=== PATIENT | male | born 2000 | race Caucasian/White ===

== ENCOUNTER → 2018-08-06 | Outpatient (REF) | payer BC | LOC: M SFHCLERA 10:29 | PROVIDERS: ATTEND Physician Assistant | DX: J02.9 Acute pharyngitis, unspecified (principal) ==

== ENCOUNTER → 2018-12-03 | Outpatient (REF) | payer BC ==
[~2018-12-03] MED LIST: AMOX875T2 PO; HYDR-4571 PO; METR-265 PO; SULF1TAB93 PO
== END ==
LOC: M SFHCLERA 14:22
PROVIDERS: ATTEND Physician Assistant
DX: L05.01 Pilonidal cyst with abscess (principal)

== ENCOUNTER 2018-12-07 11:02 | Day surgery (SDC) | payer BC ==
[~2018-12-07] VITALS: Ht 175.3 cm; Wt 104.5 kg
[2018-12-07] MEDS ORDERED: SULF1TAB93 PO (11:14)
[2018-12-07] MEDS ORDERED: KETOROLAC 30 MG/ML VIAL (J1885) IV ONE (11:30)
[2018-12-07] MEDS ORDERED: NS 1,000 ML IV ONE (11:30)
[2018-12-07 11:42] LABS: BASO % 0.2 % (0.0-1.0); EOS % 0.1 % (0.0-3.0); HEMATOCRIT 41.2 % (42.0-52.0); HEMOGLOBIN 14.6 g/dl (13.5-17.5); LYMPH # 1.1 10^3/uL (1.5-6.5); LYMPH % 7.9 % (24.0-44.0); MEAN CORPUSCULAR HEMOGLOBIN 30.5 pg (27.0-33.0); MEAN CORPUSCULAR HGB CONC 35.4 g/dl (32.0-36.5); MEAN CORPUSCULAR VOLUME 86.2 fl (80.0-96.0); MONO # 1.4 10^3/uL (0.0-0.8); MONO % 10.5 % (0.0-5.0); NEUTROPHILS # 11.1 10^3/uL (1.8-7.7); NEUTROPHILS % 80.9 % (36.0-66.0); PLATELET COUNT, AUTOMATED 298 10^3/uL (150-450); RED BLOOD COUNT 4.78 10^6/uL (4.30-6.10); WHITE BLOOD COUNT 13.8 10^3/uL (4.0-10.0)
[2018-12-07 12:06] LABS: ALBUMIN 3.9 GM/DL (3.2-5.2); ALT/SGPT 43 U/L (12-78); BILIRUBIN,DIRECT 0.4 MG/DL (0.0-0.2); BILIRUBIN,TOTAL 1.2 MG/DL (0.2-1.0); BLOOD UREA NITROGEN 14 MG/DL (7-18); CALCIUM LEVEL 9.7 MG/DL (8.5-10.1); CARBON DIOXIDE LEVEL 29 MEQ/L (21-32); CHLORIDE LEVEL 98 MEQ/L (98-107); CREATININE FOR GFR 1.01 MG/DL (0.70-1.30); GLUCOSE, FASTING 90 MG/DL (70-100); LIPASE 75 U/L (73-393); POTASSIUM SERUM 4.3 MEQ/L (3.5-5.1); SODIUM LEVEL 138 MEQ/L (136-145); TOTAL PROTEIN 7.7 GM/DL (6.4-8.2)
[2018-12-07] MEDS ORDERED: ISOVUE-370 76% 100ML VIAL (Q9967) As Ordered ONE (12:13)
[2018-12-07] MEDS ORDERED: PIPERACILLIN/TAZOBACTAM SOD 3.375 GM in D5W MINI-BAG PLUS 50 ML IV ONE ×2 (13:15→18:45)
--- NOTE | 2018-12-07 13:36 | REP ---
CT of the abdomen and pelvis with IV contrast, without bowel contrast for right lower quadrant abdominal pain. The appendix is dilated measuring 21 mm in diameter. There is periappendiceal mesenteric inflammation. Findings are compatible with appendicitis. There is no periappendiceal fluid collection or abscess. There is no pneumoperitoneum. There is a small volume of ascites in the pelvis. The visualized lung gaines are unremarkable. The hepatic parenchyma, gallbladder, pancreas, spleen, adrenals, kidneys and abdominal aorta are unremarkable. The bowel and mesentery are otherwise unremarkable. Pelvis: Small volume of ascites. The bladder is unremarkable. There is no adenopathy. Impression: Acute appendicitis with appendix distension and periappendiceal inflammation. There is no periappendiceal fluid collection or abscess. Electronically Signed by Olegario Harris MD 12/07/2018 01:28 P
[2018-12-07 16:55] VITALS: BP 139/67
[2018-12-07] MEDS ORDERED: BUPIVACAINE HCL 0.25% 30 ML VIAL As Ordered ONE (18:16)
[2018-12-07] MEDS ORDERED: LIDOCAINE 1% SDV INJ 30 ML VIAL As Ordered ONE (18:16)
[2018-12-07] MEDS ORDERED: LR 1,000 ML IV SCH ×2 (18:30→22:00)
[2018-12-07] MEDS ORDERED: PIPERACILLIN/TAZOBACTAM SOD 3.375 GM in D5W MINI-BAG PLUS 50 ML IV SCH (19:00)
[2018-12-07] MEDS ORDERED: fentaNYL 100 MCG/2 ML INJECTION (J3010) As Ordered ONE (19:15)
[2018-12-07] MEDS ORDERED: MIDAZOLAM INJ 2 MG/2 ML VIAL (J2250) As Ordered ONE (19:16)
[2018-12-07] MEDS ORDERED: LIDOCAINE 2% INJ 100 MG/5 ML SDV (FOR ANES.) As Ordered ONE (19:16)
[2018-12-07] MEDS ORDERED: ONDANSETRON 4MG/2ML VIAL (J2405) As Ordered ONE (19:16)
[2018-12-07] MEDS ORDERED: dexameTHASONE 4 MG/ML 1ML VIAL (J1100) As Ordered ONE (19:16)
[2018-12-07] MEDS ORDERED: ROCURONIUM BROMIDE 50 MG/5 ML VIAL As Ordered ONE ×2 (19:16→21:06)
[2018-12-07] MEDS ORDERED: propofoL 200 MG/20 ML VIAL As Ordered ONE ×2 (19:16→21:20)
[2018-12-07] MEDS ORDERED: ZOSYN 3.375 GM VIAL (J2543) As Ordered ONE (20:03)
[2018-12-07] MEDS ORDERED: SUGAMMADEX SODIUM 500 MG/5 ML VIAL (BRIDION) As Ordered ONE (20:06)
[2018-12-07] MEDS ORDERED: KETOROLAC 60 MG/2 ML VIAL (J1885) As Ordered ONE (20:06)
[2018-12-07] MEDS ORDERED: HYDROmorphone HCL 2 MG/ML 1ML VIAL (J1170) As Ordered ONE (20:13)
[2018-12-07] MEDS ORDERED: MORPHINE 4 MG/ML 1ML VIAL/SYRINGE (J2270) IV PRN (21:45)
[2018-12-07] MEDS ORDERED: NORCO, ANEXSIA 5/325MG TABLET (HYDROcodone/ACETAMINOPHEN) PO PRN ×2 (21:45)
[2018-12-07] MEDS ORDERED: ONDANSETRON 4MG/2ML VIAL (J2405) IV PRN ×2 (21:45→22:00)
[2018-12-07] MEDS ORDERED: ACETAMINOPHEN TAB 650MG DOSE (2X325MG) PO PRN (21:45)
[2018-12-07] MEDS ORDERED: fentaNYL 100 MCG/2 ML INJECTION (J3010) IV PRN (22:00)
[2018-12-07] MEDS ORDERED: MORPHINE 10 MG/ML 1ML VIAL (J2270) IV PRN (22:00)
[2018-12-07] MEDS ORDERED: PERCOCET 5MG/325MG TAB PO PRN (22:00)
[2018-12-07 22:36] VITALS: BP 168/97
[2018-12-07] MEDS: CelecoXIB (CeleBREX) 100 MG CAP PO SCH (22:40)
[2018-12-07] MEDS: SENOKOT S TAB PO SCH (22:40)
[2018-12-07] MEDS: LR 1,000 ML IV SCH (22:41)
[2018-12-07 23:05] VITALS: BP 156/95
[2018-12-07 23:45] VITALS: BP 148/70
[2018-12-08] VITALS (9 sets, daily range): BP systolic 117–146; BP diastolic 60–79
[2018-12-08] MEDS: PIPERACILLIN/TAZOBACTAM SOD 3.375 GM in D5W MINI-BAG PLUS 50 ML IV SCH ×4 (01:40→20:30)
[2018-12-08 06:26] LABS: HEMOGLOBIN 14.1 g/dl (13.5-17.5); MEAN CORPUSCULAR HEMOGLOBIN 29.4 pg (27.0-33.0); MEAN CORPUSCULAR HGB CONC 34.4 g/dl (32.0-36.5); MEAN CORPUSCULAR VOLUME 85.6 fl (80.0-96.0); PLATELET COUNT, AUTOMATED 306 10^3/uL (150-450); RED BLOOD COUNT 4.79 10^6/uL (4.30-6.10); WHITE BLOOD COUNT 12.3 10^3/uL (4.0-10.0)
[2018-12-08 06:41] LABS: BLOOD UREA NITROGEN 16 MG/DL (7-18); CALCIUM LEVEL 9.8 MG/DL (8.5-10.1); CARBON DIOXIDE LEVEL 29 MEQ/L (21-32); CHLORIDE LEVEL 101 MEQ/L (98-107); CREATININE FOR GFR 0.95 MG/DL (0.70-1.30); GLUCOSE, FASTING 131 MG/DL (70-100); POTASSIUM SERUM 4.2 MEQ/L (3.5-5.1); SODIUM LEVEL 137 MEQ/L (136-145)
[2018-12-08] MEDS: LR 1,000 ML IV SCH (07:43)
[2018-12-08] MEDS: CelecoXIB (CeleBREX) 100 MG CAP PO SCH ×2 (10:08→20:30)
[2018-12-08] MEDS: SENOKOT S TAB PO SCH ×2 (10:08→20:30)
--- NOTE | 2018-12-08 18:23 | ROOPDOC ---
[facility] Report Of Operation Report of Operation DATE OF PROCEDURE: 12/07/18 PREPROCEDURE DIAGNOSES: Acute appendicitis, recurrent. POSTPROCEDURE DIAGNOSES: Acute appendicitis with abscess. PROCEDURE: Laparoscopic appendectomy. SURGEON: Jovani Grewal MD OPTICAL INSTRUMENT REPAIRER: ANESTHESIA: Gen. anesthesia. ESTIMATED BLOOD LOSS: Approximately 50 mL. COMPLICATIONS: None. REMARKS: Patient is a 18-year-old healthy male who more than a year ago had a perforated appendicitis swelling [place], treated with percutaneous drainage and antibiotics with resolution of symptoms now with a one-week history of right lo wer quadrant pain, intermittent febrile episodes and exam consistent with acute appendicitis.. PROCEDURE NOTE: Markedly dilated and thickened appendix which partly looks chronic and scarred in right anterolateral abdominal wall likewise partly to the lateral wall of the cecum. The appendix is hardened up to the base of the appendix and partly the cecum. The first time I fired the DAVID 45 mm stapler with a green load the appendix broke apart so I had to dissect beyond the base of the appendix to partly the cecum wall and fired a echelon 60 mm stapler with a green load to fully divide the appendix. The base and partly the cecum.. DESCRIPTION OF PROCEDURE: Patient has been given a dose of Zosyn perioperatively.Patient was brought to the operating room, placed supine on the table. Sequential compression device placed for DVT prophylaxis. General endotracheal anesthesia started. The abdomen prepped and draped in usual sterile fashion. After a surgical timeout, we began our surgery Entry into the abdomen done through an incision above the umbilicus. Veress needle inserted on a controlled fashion. Intra-abdominal placement confirmed wi th saline drop technique. CO2 insufflation started to a pressure of 15 mmHg. Using the same incision a 5 mm port was placed under direct vision of laparoscope. Insertion site was inspected for injury and none was found. He was placed on a Trendelenburg position the right side tilted to about 30 to allow for better visualization of the appendix. 2 5 mm working ports were placed at the suprapubic area and left lower quadrant area under direct vision. The umbilical port was exchanged for an 8 mm port. Operative findings: Poorly visualized the appendix. This was adhered to the anterior lateral sidewall. There was some omentum adhered to it but this appeared chronic. The appendix can be palpated and was hard and markedly enlarged and fibrotic in appearance. This hardness or thickening extends to the base of the appendix as it enters the cecum. The cecum itself appears healthy. Terminal ileum course is close to the insertion of the appendix but otherwise soft and pliable and healthy and uninvolved. The appendix was located adhered to the anterolateral abdominal sidewall. This was bluntly dissected away. It was difficult to grasped the appendix and will manipulating this is broke apart in the middle of the appendix with purulent material leaking out from the appendix. The serosa of the appendix is thickened, sclerotic and fibrotic. It has some pre-wall perform adhesion to the wall of the cecum as well as the surrounding adiposity to the cecum. The dissected and freed this up to trace the course of the appendix using the Harmonic scalpel. While dividing the mesial appendix which was already shortened there was some bleeding from the eponychial artery or its branches which retracted into the thickened mesentery which I had to further develop to control with the Harmonic scalpel. After this a partially freed up the cecum and part of the descending colon from the anterior lateral sidewall along the line of [place] mostly with blunt dissection to further deliver the appendix into view. The fibrous attachments of the appendix to the cecum down to the base were further freed up. I initially used a 45 mm stapler with a green load but this soon as I closed the jaws of the stapler the appendix again broke apart. After firing the stapler I could see a defect on the medial side of the staple line. I further developed the base of the appendix to the wall of the cecum to further left up the cecum and get into a fresher, more pliable tissue. I then up sized to the 8 mm port with 12 mm port to accommodate an echelon 60 mm stapler. The echelon stapler with a green load was then used to divide the appendix including part of the wall of the cecum. Staple line on this area seems healthy and intact. At this point the appendix was retrieved out through the Endo Catch bag. Thorough irrigation was then performed and the specifically visualized the mesenteric line to look for any further evidence of bleeding. Once satisfied with the hemostasis I left a 18 Aidan drain at the right lower quadrant coursing through to the pelvis and pulled this out from the left lower quadrant port. The abdomen was then deflated all ports removed. The umbilical port was closed with 0 Vicryl in a mattress fashion using a VitaFlavor device. All skin incisions closed with 4-0 Monocryl in subcuticular fashion. The drain was sutured to the skin. Steri- Strips, gauze dressings then placed to cover the incision as well as drain dressings to the Aidan drain. Patient was promptly awake and extubated and brought to recovery room stable. All counts of sponges and instruments verified to be correct. JOVANI GREWAL MD Dec 08, 2018 18:23
--- NOTE | 2018-12-08 18:24 | IPNPDOC ---
Subjective General Date/Time Seen The patient was seen on 12/08/18 at 18:23. Subject Chief Complaint/History The patient is a 18-year-old male admitted with a reason for visit of Acute Appendicitis. Patient reports discomfort, drain with minimal serosanguineous output. Current Medications Current Medications Current Medications Medications (Trade) Dose Ordered Sig/Pooja Route PRN Reason Start Time Stop Time Status Last Admin Dose Admin Acetaminophen (Tylenol Tab) 650 mg Q4HP PRN PO MILD PAIN or TEMP > 101 12/07/18 21:45 Acetaminophen/ Hydrocodone Bitart ([place], [place]nexsia 5/325) 1 tab Q4HP PRN PO MODERATE PAIN (PS 5-7) 12/07/18 21:45 Acetaminophen/ Hydrocodone Bitart ([place], Anexsia 5/325) 2 tab Q6HP PRN PO SEVERE PAIN (PS 8-10) 12/07/18 21:45 Celecoxib (CeleBREX) 200 mg BID PO 12/07/18 20:00 12/08/18 10:08 Fentanyl Citrate (Sublimaze) 25 mcg Q5MP PRN IV MODERATE PAIN (PS 4-7) 12/07/18 22:00 12/07/18 22:59 DC Home Med (Med Rec Complete!) ASDIRECTED XX 12/07/18 14:00 12/07/18 14:00 DC Lactated Ringer's 1,000 ml @ 100 mls/hr Q10H IV 12/07/18 18:30 12/07/18 21:50 DC Lactated Ringer's 1,000 ml @ 100 mls/hr Q10H IV 12/07/18 21:43 12/08/18 10:19 DC 12/08/18 07:43 Lactated Ringer's 1,000 ml @ 100 mls/hr Q10H IV 12/07/18 22:00 12/07/18 22:59 DC Morphine Sulfate (Morphine Sulfate Inj) 2 mg Q2HP PRN IV SEVERE PAIN (PS 8-10) 12/07/18 21:45 Morphine Sulfate (Morphine Sulfate Inj) 2 mg Q5M PRN IV MODERATE/SEVERE PAIN (PS 5-10) 12/07/18 22:00 12/07/18 22:59 DC Ondansetron HCl (ZOFRAN INJection) 4 mg Q4HP PRN IV NAUSEA OR VOMITING 12/07/18 22:00 12/07/18 22:59 DC Ondansetron HCl (ZOFRAN INJection) 4 mg Q6HP PRN IV NAUSEA OR VOMITING 12/07/18 21:45 Oxycodone/ Acetaminophen (Percocet 5mg/ 325mg Tablet) 1 tab ASDIRECTED PRN PO MILD/MODERATE PAIN (PS 1-7) 12/07/18 22:00 12/07/18 22:59 DC Piperacillin Sod/ Tazobactam Sod 3.375 gm/Dextrose 50 ml @ 50 mls/hr Q6H IV 12/07/18 19:00 12/07/18 21:50 DC Piperacillin Sod/ Tazobactam Sod 3.375 gm/Dextrose 50 ml @ 50 mls/hr Q6H IV 12/08/18 02:00 12/08/18 14:22 Senna/Docusate Sodium (Senokot S) 1 tab BID PO 12/07/18 21:00 12/08/18 10:08 Allergies Coded Allergies: No Known Allergies (Unverified , 12/07/18) Objective Physical Examination Examination GENERAL APPEARANCE: Relatively comfortable. SKIN: Warm and moist. HEENT: Normocephalic, atraumatic. [place] palpebral conjunctiva, anicteric sclerae. Lips and mucosa appear moist. NECK: Supple, no thyromegaly. No obvious jugular venous distention. LUNGS: Clear to auscultation bilaterally. No wheezing appreciated. HEART: No chest wall abnormalities. Regular rate and rhythm with no murmurs appreciated. ABDOMEN: Abdomen is minimally distended, soft, slightly tympanitic percussion. Laparoscopic port site dressings intact, clean and dry. MELVA drain with small amount of serosanguineous fluid. EXTREMITIES: Extremities have no deformities. No edema identified. Vital Signs Vital Signs Date Time Temp Pulse Resp B/P (MAP) Pulse Ox O2 Delivery O2 Flow Rate FiO2 12/08/18 15:45 99.2 98 18 140/72 (94) 94 12/07/18 11:02 Room Air I&Os I&O- Last 24 Hours up to 6 AM 12/08/18 05:59 Intake Total 2645 ml Output Total 60 ml Balance 2585 ml Laboratory Data Labs 24H Laboratory Tests 2 12/08/18 05:20: Nucleated Red Blood Cells % (auto) 0.0, Anion Gap 7L, Blood Urea Nitrogen 16, Creatinine 0.95, Sodium Level 137, Potassium Level 4.2, Chloride Level 101, Carbon Dioxide Level 29, Calcium Level 9.8, C-Reactive Protein, Quantitative 13.50H CBC/BMP Laboratory Tests 12/08/18 05:20 Red Blood Count 4.79, Mean Corpuscular Volume 85.6, Mean Corpuscular Hemoglobin 29.4, Mean Corpuscular Hemoglobin Concent 34.4, Red Cell Distribution Width 10.7 L, Calcium Level 9.8 Impression Postop day 1 laparoscopic appendectomy for recurrent acute appendicitis with abscess Doing well. He is been afebrile. He still has leukocytosis. His drain is putting out serosanguineous fluid. Continue with antibiotics. I'll advance him to regular activity without IV fluids. If afebrile tomorrow and the leukocytosis dropped appropriately most likely can be discharged home tomorrow on oral antibiotics. Plan / VTE VTE Prophylaxis Ordered?: Yes INDIA HOGUE MD Dec 08, 2018 18:24
--- NOTE | 2018-12-08 19:49 | HPEPDOC ---
General Surgery H&P Date of Admission Dec 07, 2018 Attending Physician: INDIA HOGUE MD History and Physical CHIEF COMPLAINT: abdominal pain HISTORY OF PRESENT ILLNESS: Patient presented to the emergency room with complaints of right lower abdominal pain with radiation to the right flank area and periumbilical area since last Monday. He describes this as cramping in nature and becoming steady and sharp. He reports some mild fever Monday evening. He was also recently started on Bactrim for worsening of his pilonidal cyst last Monday. He reports prior history of perforated appendicitis year ago where he was treated with percutaneous drainage abscess with resolution of his symptoms. An interval appendectomy was not performed. In the ER he was evaluated was found to have mildly elevated WBC at 13.8. His CT scan of the abdomen and pelvis done showing acute appendicitis. I was then called in to manage the patient. ALLERGIES: Please see below. HOME MEDICATIONS: Please see below. PAST MEDICAL HISTORY: 1. Previous perforated appendicitis treated with percutaneous drainage of abscess PAST SURGICAL HISTORY: 1. Percutaneous drainage of abscess PERSONAL/SOCIAL HISTORY: Reports smoking, occasional alcohol use, denies recreational drug use. REVIEW OF SYSTEMS: GENERAL: Patient reports intermittent low-grade fever. HEENT: [Denies blurred vision and double vision. Denies ear symptoms. Denies hoarseness]. NECK: [Denies any neck pain]. CARDIOVASCULAR: [Denies chest pain and palpitations]. MUSCULOSKELETAL: [Denies arthralgias, back pain and thrombophlebitis]. SKIN: [Denies rash]. NEUROLOGIC: [Denies headache, stroke and transient ischemic attack]. PSYCHIATRIC: [Denies anxiety and depression]. ENDOCRINE: [Denies thyroid disease]. HEMATOLOGY/ONCOLOGY: [Denies any bleeding or clotting disorder]. HEART: [Denies any chest pains, palpitations, paroxysmal dyspnea, orthopnea]. PULMONARY: [Denies chronic cough, dyspnea and wheezing]. GASTROINTESTINAL: See HPI. Patient.History of perforated appendicitis. GENITOURINARY: [Denies dysuria, frequency, hematuria and nocturia]. ENDOCRINE: [Denies polydipsia, polyphagia, polyuria, heat or cold intolerance]. INFECTIOUS: [Denies any recent upper respiratory tract infection, UTI, need for use of antibiotics]. NUTRITION: [Reports loss of appetite]. PHYSICAL EXAMINATION: VITAL SIGNS: Please see below. GENERAL APPEARANCE: Patient appears mildly uncomfortable. [Awake, alert, oriented]. HEENT: [Normocephalic, atraumatic. [place] palpebral conjunctivae. Anicteric sclerae. Lips moist]. CHEST: [No chest wall abnormalities. Normal respiratory motion/effort]. NECK: [Supple. No thyromegaly. No lymphadenopathies]. LUNGS: [Lung sounds are clear to auscultation bilaterally. No wheezing appreciated]. HEART: [No chest wall abnormalities. Heart rate and rhythm are regular with no murmurs]. ABDOMEN: Abdomen is mildly obese and rounded, minimally distended slightly tympanitic to percussion. Patient is moderately tender over the right lower quadrant area with minimal guarding. Nontender and reports the abdomen. SKIN: [Warm, moist]. EXTREMITIES: [Extremities have no deformities. No edema identified]. NEUROLOGICAL: Awake, alert, oriented. ANCILLARIES: . LABORATORY DATA: Please see below. MICROBIOLOGY: Please see below. IMAGING: CT scan of abdomen and pelvis Consistent with acute appendicitis IMPRESSION AND PLAN: Acute appendicitis, recurrent Patient has prior history of appendicitis treated with percutaneous drainage of abscess. He does have a good amount of inflammation around the appendix which can be partly chronic. He has acute worsening of pain for the past week, mild leukocytosis of 13.8. I counseled him on performing appendectomy at this time. We will proceed with laparoscopic appendectomy. I discussed with the patient the details of the proposed procedure, the benefits of performing the procedure, the most common risks on doing the procedure. This may include risks of injury to nearby bowels, bleeding, infection or subsequent abscess formation. I have given him a chance to ask questions, voice out concerns. Patient has agreed to proceed. Vital Signs Vital Signs Date Time Temp Pulse Resp B/P (MAP) Pulse Ox O2 Delivery O2 Flow Rate FiO2 12/08/18 15:45 99.2 98 18 140/72 (94) 94 12/07/18 11:02 Room Air I&Os I&O- Last 24 Hours up to 6 AM 12/08/18 06:00 Intake Total 3145 ml Output Total 1200 ml Balance 1945 ml Laboratory Data Labs 24H Laboratory Tests 2 12/08/18 05:20: Nucleated Red Blood Cells % (auto) 0.0, Anion Gap 7L, Blood Urea Nitrogen 16, Creatinine 0.95, Sodium Level 137, Potassium Level 4.2, Chloride Level 101, Carbon Dioxide Level 29, Calcium Level 9.8, C-Reactive Protein, Quantitative 13.50H CBC/BMP Laboratory Tests 12/08/18 05:20 Red Blood Count 4.79, Mean Corpuscular Volume 85.6, Mean Corpuscular Hemoglobin 29.4, Mean Corpuscular Hemoglobin Concent 34.4, Red Cell Distribution Width 10.7 L, Calcium Level 9.8 Home Medications Scheduled Amoxicillin/Potassium Clav (Amox-Clav 875-125 mg Tablet) 1 Each Tablet, 1 TAB PO BID Metronidazole (Metronidazole) 500 Mg Tablet, 500 MG PO TID Scheduled PRN Hydrocodone/Acetaminophen (Hydrocodone-Acetamin 5-325 mg) 1 Each Tablet, 1-2 TAB PO Q4HP PRN for MODERATE PAIN (PS 5-7) Allergies Coded Allergies: No Known Allergies (Unverified , 12/07/18) A-FIB/CHADSVASC A-FIB History Current/History of A-Fib/PAF?: No Current PO Anticoag Therapy: No INDIA HOGUE MD Dec 08, 2018 19:49
[2018-12-09] MEDS: PIPERACILLIN/TAZOBACTAM SOD 3.375 GM in D5W MINI-BAG PLUS 50 ML IV SCH ×2 (02:00→09:55)
[2018-12-09 06:40] LABS: HEMATOCRIT 35.5 % (42.0-52.0); HEMOGLOBIN 12.2 g/dl (13.5-17.5); MEAN CORPUSCULAR HEMOGLOBIN 29.8 pg (27.0-33.0); MEAN CORPUSCULAR HGB CONC 34.4 g/dl (32.0-36.5); MEAN CORPUSCULAR VOLUME 86.6 fl (80.0-96.0); PLATELET COUNT, AUTOMATED 312 10^3/uL (150-450); WHITE BLOOD COUNT 6.4 10^3/uL (4.0-10.0)
[2018-12-09 06:54] LABS: BLOOD UREA NITROGEN 15 MG/DL (7-18); C REACTIVE PROTEIN QUANTITATIV 9.28 MG/DL (0.00-0.30); CALCIUM LEVEL 8.6 MG/DL (8.5-10.1); CARBON DIOXIDE LEVEL 31 MEQ/L (21-32); CHLORIDE LEVEL 106 MEQ/L (98-107); CREATININE FOR GFR 0.75 MG/DL (0.70-1.30); GLUCOSE, FASTING 108 MG/DL (70-100); POTASSIUM SERUM 3.9 MEQ/L (3.5-5.1); SODIUM LEVEL 141 MEQ/L (136-145)
[2018-12-09 07:45] VITALS: BP 134/74
[2018-12-09] MEDS: SENOKOT S TAB PO SCH (09:55)
[2018-12-09] MEDS: CelecoXIB (CeleBREX) 100 MG CAP PO SCH (09:55)
[2018-12-09] MEDS ORDERED: AMOX875T2 PO (10:35)
[2018-12-09] MEDS ORDERED: HYDR-4571 PO (10:35)
[2018-12-09] MEDS ORDERED: METR-265 PO (10:35)
--- NOTE | 2018-12-09 10:37 | DS.PDOC ---
Discharge Summary General Date of Admission Date of Discharge December 09, 2018 Discharge Summary PROCEDURES PERFORMED DURING STAY: Laparoscopic Appendectomy. ADMITTING DIAGNOSES: 1. Recurrent Acute Appendicitis. DISCHARGE DIAGNOSES: 1. Recurrent Acute Appendicitis. COMPLICATIONS/CHIEF COMPLAINT: Acute Appendicitis. HISTORY OF PRESENT ILLNESS: Patient presented at Hospital in 1 week history of right lower quadrant abdominal pain. HOSPITAL COURSE: Patient was found to have evidence for acute appendicitis. He had a prior history of perforated appendicitis treated percutaneously. He was brought to the operating room for laparoscopic appendectomy was performed. The Alexandr-Sotelo drain was left in place for monitoring. He had some localized necrosis and fibrotic scaring of the appendix. He did well postoperatively. He remained afebrile. His leukocytosis resolved by postop day 2. He had minimal drain output and drain was discontinued on day of discharge he is postop day 3. He had been afebrile throughout his postoperative stay. He was discharged home on Augmentin for seven-day course and metronidazole.. DISCHARGE MEDICATIONS: Please see below. ALLERGIES: Please see below. PHYSICAL EXAMINATION ON DISCHARGE: VITAL SIGNS: Please see below. GENERAL: Comfortable HEENT: Normocephalic, atraumatic, pink palpebral conjunctiva NECK: Supple, no jugular venous distention CARDIOVASCULAR EXAMINATION: Regular heart rate and rhythm with no murmurs RESPIRATORY EXAMINATION: Clear breath sounds to auscultation bilaterally no wheezing ABDOMINAL EXAMINATION: Mildly obese, round abdomen, and nondistended. Laparoscopic port site incisions are clean, dry and intact. Alexandr-Sotelo drain is being removed EXTREMITIES: No edema NEUROLOGICAL EXAMINATION: Awake, alert, oriented LABORATORY DATA: Please see below. IMAGING: CT scan abdomen and pelvis PROGNOSIS: Good ACTIVITY: Light activity for 1 week, advance as tolerated. DIET: And advance as tolerated DISCHARGE PLAN: Patient discharged home on a 1 week antibiotic course DISPOSITION: . DISCHARGE INSTRUCTIONS: 1. Take Augmentin and metronidazole for a seven-day course 2. Follow up in clinic in 2 weeks. ITEMS TO FOLLOWUP ON ON OUTPATIENT: 1. Review pathology result. DISCHARGE CONDITION: Stable. TIME SPENT ON DISCHARGE: Greater than 30 minutes. Vital Signs/I&Os Vital Signs Date Time Temp Pulse Resp B/P (MAP) Pulse Ox O2 Delivery O2 Flow Rate FiO2 12/09/18 07:45 98.6 79 18 134/74 (94) 98 12/07/18 11:02 Room Air I&O- Last 24 Hours up to 6 AM 12/09/18 06:00 Intake Total 1720 ml Output Total 55 ml Balance 1665 ml Laboratory Data Labs 24H Laboratory Tests 2 12/09/18 06:05: Nucleated Red Blood Cells % (auto) 0.0, Anion Gap 4L, Blood Urea Nitrogen 15, Creatinine 0.75, Sodium Level 141, Potassium Level 3.9, Chloride Level 106, Carbon Dioxide Level 31, Calcium Level 8.6, C-Reactive Protein, Quantitative 9.28H CBC/BMP Laboratory Tests 12/09/18 06:05 Red Blood Count 4.10 L, Mean Corpuscular Volume 86.6, Mean Corpuscular Hemoglobin 29.8, Mean Corpuscular Hemoglobin Concent 34.4, Red Cell Distribution Width 11.0 L, Calcium Level 8.6 Discharge Medications Scheduled Amoxicillin/Potassium Clav (Amox-Clav 875-125 mg Tablet) 1 Each Tablet, 1 TAB PO BID Metronidazole (Metronidazole) 500 Mg Tablet, 500 MG PO TID Scheduled PRN Hydrocodone/Acetaminophen (Hydrocodone-Acetamin 5-325 mg) 1 Each Tablet, 1-2 TAB PO Q4HP PRN for MODERATE PAIN (PS 5-7) Allergies Coded Allergies: No Known Allergies (Unverified , 12/07/18) INDIA HOGUE MD Dec 09, 2018 10:37
== END 2018-12-09 13:05 | disposition home or self-care (01) ==
LOC: M ED 11:02 → M SDC 11:03 → M MSPAV 17:00 → M SDC 12-09 13:05
PROVIDERS: ATTEND Surgery
DX: K35.890 Other acute appendicitis without perforation or gangrene (principal); F17.210 Nicotine dependence, cigarettes, uncomplicated
CPT/HCPCS: 36415; 44970; 74177; 80048; 80076; 81001; 83690; 85025; 85027; 86140; 88302; 96361; 96365; 96366; 96375; 99284; J1100; J1170; J1885; J2250; J2405; J2543; J3010; Q9967

== ENCOUNTER → 2019-10-03 | Outpatient (REF) | payer BC ==
[2019-10-03 12:11] LABS: APPEARANCE, URINE CLEAR (CLEAR); BACTERIA, URINE AUTO NEGATIVE (NEGATIVE); BILIRUBIN, URINE AUTO NEGATIVE (NEGATIVE); BLOOD, URINE BLOOD NEGATIVE (NEGATIVE); COLOR, URINE YELLOW (YELLOW); GLUCOSE, URINE (UA) AUTO NEGATIVE (NEGATIVE); KETONE, URINE AUTO NEGATIVE (NEGATIVE); LEUKOCYTE ESTERASE, URINE AUTO NEGATIVE (NEGATIVE); NITRITE, URINE AUTO NEGATIVE (NEGATIVE); PROTEIN, URINE AUTO NEGATIVE (NEGATIVE); RBC, URINE AUTO 0 /HPF (0-3); SQUAMOUS EPITHELIAL CELL UR AU 0 /HPF (0-6); UROBILINOGEN, URINE AUTO 0.2 mg/dL (0.0-2.0); WBC, URINE AUTO 0 /HPF (0-3)
[2019-10-03 12:16] LABS: BASO # 0.1 10^3/uL (0.0-0.2); BASO % 1.1 % (0.0-1.0); EOS # 0.2 10^3/uL (0.0-0.5); HEMATOCRIT 45.9 % (42.0-52.0); HEMOGLOBIN 15.5 g/dl (13.5-17.5); LYMPH # 1.4 10^3/uL (1.5-5.0); LYMPH % 23.9 % (24.0-44.0); MEAN CORPUSCULAR HEMOGLOBIN 29.4 pg (27.0-33.0); MEAN CORPUSCULAR HGB CONC 33.8 g/dl (32.0-36.5); MEAN CORPUSCULAR VOLUME 86.9 fl (80.0-96.0); MONO # 0.7 10^3/uL (0.0-0.8); MONO % 11.4 % (0.0-5.0); NEUTROPHILS # 3.4 10^3/uL (1.5-8.5); NEUTROPHILS % 60.2 % (36.0-66.0); PLATELET COUNT, AUTOMATED 301 10^3/uL (150-450); RED BLOOD COUNT 5.28 10^6/uL (4.30-6.10); WHITE BLOOD COUNT 5.7 10^3/uL (4.0-10.0)
[2019-10-03 12:41] LABS: BLOOD UREA NITROGEN 11 MG/DL (7-18); CALCIUM LEVEL 9.5 MG/DL (8.5-10.1); CARBON DIOXIDE LEVEL 29 MEQ/L (21-32); CHLORIDE LEVEL 104 MEQ/L (98-107); CREATININE FOR GFR 0.87 MG/DL (0.70-1.30); GLOMERULAR FILTRATION RATE > 60.0 (>60); GLUCOSE, FASTING 78 MG/DL (70-100); POTASSIUM SERUM 4.7 MEQ/L (3.5-5.1); SODIUM LEVEL 136 MEQ/L (136-145)
[2019-10-03 13:27] LABS: HEMOGLOBIN A1c 5.2 %
== END ==
LOC: M SFHCLERA 10:23
PROVIDERS: ATTEND Family Medicine
DX: Z13.1 Encounter for screening for diabetes mellitus (principal); R03.0 Elevated blood-pressure reading, without diagnosis of hypertension